=== PATIENT | male | born 1965 | race Two or more races ===

== ENCOUNTER 2018-07-16 16:33 | Inpatient (IN) | payer OTHER ==
[~2018-07-16] VITALS: Ht 195.6 cm; Wt 205.6 kg
[2018-07-16] MEDS ORDERED: CLINDAMYCIN 600MG IV 50 ML IV ONE (17:45)
[2018-07-16 18:19] LABS: Basophils # (auto) 0 uL; Eosinophils # (auto) 0.1 uL; Lymphocytes # (auto) 0.8 uL; Monocytes # (auto) 0.9 uL; Neutrophils # (auto) 5.9 uL
[2018-07-16 18:21] LABS: Basophils % (auto) 0.5 % (0.0-2.0); Hematocrit 39.6 % (41.0-53.0); Hemoglobin 12.7 g/dL (13.5-17.5); Lymphocytes % (auto) 10.1 % (10.0-50.0); Mean Corpuscular Hemoglobin 26.5 pg (28.0-32.0); Mean Corpuscular Hgb Conc. 32.1 g/dL (32.0-36.0); Mean Corpuscular Volume 82.8 fL (80.0-100.0); Monocytes % (auto) 12.2 % (0.0-12.0); Neutrophils % (auto) 76.2 % (37.0-80.0); Platelet Count (auto) 336 10^3/uL (140-450); Red Blood Cells 4.78 10^6/uL (4.5-5.90); White Blood Cell 7.8 10^3/uL (4.4-10.8)
[2018-07-16 18:30] LABS: INR 1.08 (0.9-1.15); Partial Thromboplastin Time 26.4 sec (23.78-33.04); Prothrombin Time 11.5 sec (9.27-12.13)
[2018-07-16 18:32] LABS: Albumin 2.9 g/dL (3.4-5.0); Calcium 8.3 mg/dL (8.5-10.1)
[2018-07-16 18:37] LABS: BUN/Creatinine Ratio 14.5; Bilirubin, Total 2.4 mg/dL (0.2-1.0); Total Protein 7.4 g/dL (6.4-8.2)
[2018-07-16] MEDS ORDERED: SODIUM CHLORIDE 0.9% 500 ML IV ONE (20:45)
[2018-07-16] MEDS: SODIUM CHLORIDE 0.9% 500 ML IV ONE ×2 (21:21→21:22)
[2018-07-16] MEDS ORDERED: DOCUSATE SOD 100 MG CAP PO PRN (22:15)
[2018-07-16] MEDS ORDERED: VANCOMYCIN PER PHARMACY 0 MG IV SCH (22:15)
[2018-07-16] MEDS ORDERED: D5W/SOD CHL 0.45% 1,000 ML IV ONE (22:15)
[2018-07-16] MEDS ORDERED: HYDROcodone-ACET 5/325MG TAB PO PRN (22:15)
[2018-07-17] VITALS (7 sets, daily range): BP systolic 114–158; BP diastolic 66–84
[2018-07-17] MEDS: VANCOMYCIN 1GM/250ML 500 ML IV SCH ×2 (01:06→23:07)
[2018-07-17] MEDS: LEVOFLOXACIN 500MG 100 ML IV SCH (09:00)
[2018-07-17] MEDS: FAMOTIDINE 20 MG TAB PO SCH ×2 (09:01→22:16)
[2018-07-17] MEDS: VANCOMYCIN 1,250 MG in D5W 5% 250 ML IV SCH ×2 (09:01→18:31)
[2018-07-18] MEDS: VANCOMYCIN 1,250 MG in D5W 5% 250 ML IV SCH ×2 (01:08→09:29)
[2018-07-18 05:00] VITALS: BP 113/77
[2018-07-18 09:00] VITALS: BP 121/73
[2018-07-18] MEDS: LEVOFLOXACIN 500MG 100 ML IV SCH (09:29)
[2018-07-18] MEDS: FAMOTIDINE 20 MG TAB PO SCH ×2 (09:29→21:25)
[2018-07-18 09:48] LABS: Basophils # (auto) 0 uL; Eosinophils # (auto) 0.1 uL; Lymphocytes # (auto) 0.7 uL; Monocytes # (auto) 0.7 uL; White Blood Cell 6.5 10^3/uL (4.4-10.8)
[2018-07-18 09:50] LABS: Basophils % (auto) 0.6 % (0.0-2.0); Eosinophils % (auto) 1.1 % (0.0-7.0); Hematocrit 37.7 % (41.0-53.0); Hemoglobin 12.4 g/dL (13.5-17.5); Lymphocytes % (auto) 10.8 % (10.0-50.0); Mean Corpuscular Hemoglobin 26.8 pg (28.0-32.0); Mean Corpuscular Hgb Conc. 32.8 g/dL (32.0-36.0); Mean Corpuscular Volume 81.6 fL (80.0-100.0); Monocytes % (auto) 10.6 % (0.0-12.0); Neutrophils % (auto) 76.9 % (37.0-80.0); Nucleated Red Blood Cells % 0.1 %; Platelet Count (auto) 341 10^3/uL (140-450); Red Blood Cells 4.61 10^6/uL (4.5-5.90); Red Cell Distribution Width 15.8 % (11.8-14.3)
[2018-07-18 10:01] LABS: BUN/Creatinine Ratio 10.1; Calcium 8.3 mg/dL (8.5-10.1); Potassium 3.7 mmol/L (3.5-5.1)
[2018-07-18] MEDS: HYDROcodone-ACET 5/325MG TAB PO PRN (13:10)
[2018-07-18 17:00] VITALS: BP 127/71
[2018-07-18] MEDS ORDERED: VANCOMYCIN 1GM/250ML 250 ML IV SCH (18:00)
[2018-07-18 21:48] VITALS: BP 121/59
[2018-07-19] VITALS (7 sets, daily range): BP systolic 125–142; BP diastolic 59–87
[2018-07-19 06:37] LABS: Basophils # (auto) 0.1 uL; Basophils % (auto) 1.2 % (0.0-2.0); Eosinophils # (auto) 0.2 uL; Eosinophils % (auto) 2.5 % (0.0-7.0); Hematocrit 40.1 % (41.0-53.0); Hemoglobin 12.9 g/dL (13.5-17.5); Lymphocytes # (auto) 0.9 uL; Lymphocytes % (auto) 15.2 % (10.0-50.0); Mean Corpuscular Hemoglobin 27.4 pg (28.0-32.0); Mean Corpuscular Hgb Conc. 32.2 g/dL (32.0-36.0); Mean Corpuscular Volume 85.1 fL (80.0-100.0); Monocytes # (auto) 0.7 uL; Monocytes % (auto) 12.1 % (0.0-12.0); Neutrophils # (auto) 4.1 uL; Platelet Count (auto) 119 10^3/uL (140-450); Red Cell Distribution Width 15.9 % (11.8-14.3); White Blood Cell 5.9 10^3/uL (4.4-10.8)
[2018-07-19 06:43] LABS: Calcium 8.6 mg/dL (8.5-10.1); Potassium 4.1 mmol/L (3.5-5.1)
[2018-07-19] MEDS ORDERED: LEVOFLOXACIN 500MG 100 ML IV SCH (09:00)
[2018-07-19] MEDS: FAMOTIDINE 20 MG TAB PO SCH ×2 (10:56→21:34)
[2018-07-19] MEDS: HYDROcodone-ACET 5/325MG TAB PO PRN (15:53)
[2018-07-20] VITALS (7 sets, daily range): BP systolic 132–149; BP diastolic 80–91
[2018-07-20] MEDS: FAMOTIDINE 20 MG TAB PO SCH ×2 (09:39→21:51)
[2018-07-21 05:00] VITALS: BP 140/80
[2018-07-21 09:00] VITALS: BP 153/92
[2018-07-21] MEDS: FAMOTIDINE 20 MG TAB PO SCH ×2 (11:04→21:27)
[2018-07-21 13:00] VITALS: BP 124/65
[2018-07-21 17:00] VITALS: BP 113/77
[2018-07-21 22:00] VITALS: BP 131/74
[2018-07-22 05:09] VITALS: BP 150/83
[2018-07-22 09:00] VITALS: BP 138/78
[2018-07-22] MEDS: FAMOTIDINE 20 MG TAB PO SCH ×2 (11:20→21:24)
[2018-07-22 13:00] VITALS: BP 133/58
[2018-07-22 17:00] VITALS: BP 146/92
[2018-07-22 19:48] LABS: Basophils # (auto) 0 uL; Basophils % (auto) 0.8 % (0.0-2.0); Eosinophils # (auto) 0.2 uL; Eosinophils % (auto) 2.9 % (0.0-7.0); Hematocrit 38.9 % (41.0-53.0); Hemoglobin 12.7 g/dL (13.5-17.5); Lymphocytes # (auto) 0.9 uL; Lymphocytes % (auto) 15.2 % (10.0-50.0); Mean Corpuscular Hemoglobin 27.3 pg (28.0-32.0); Mean Corpuscular Hgb Conc. 32.7 g/dL (32.0-36.0); Mean Corpuscular Volume 83.5 fL (80.0-100.0); Monocytes # (auto) 0.5 uL; Monocytes % (auto) 7.8 % (0.0-12.0); Neutrophils # (auto) 4.3 uL; Neutrophils % (auto) 73.3 % (37.0-80.0); Nucleated Red Blood Cells % 0.1 %; Platelet Count (auto) 236 10^3/uL (140-450); Red Blood Cells 4.65 10^6/uL (4.5-5.90); Red Cell Distribution Width 16.1 % (11.8-14.3); White Blood Cell 5.8 10^3/uL (4.4-10.8)
[2018-07-22 19:54] LABS: INR 1.11 (0.9-1.15); Partial Thromboplastin Time 31.3 sec (23.78-33.04); Prothrombin Time 11.8 sec (9.27-12.13)
[2018-07-22 19:57] LABS: Albumin 2.6 g/dL (3.4-5.0); BUN/Creatinine Ratio 11.5; Calcium 8.2 mg/dL (8.5-10.1); Potassium 4.3 mmol/L (3.5-5.1)
[2018-07-22 20:00] LABS: Bilirubin, Total 1.5 mg/dL (0.2-1.0); Total Protein 7.2 g/dL (6.4-8.2)
[2018-07-22 22:00] VITALS: BP 119/83
[2018-07-22 23:21] LABS: Urine Bacteria FEW /hpf (None Seen); Urine Blood 1+ /uL (Negative); Urine Specific Gravity 1.005 (1.001-1.035); Urine WBC 2 /hpf (0 - 3)
[2018-07-23 05:00] VITALS: BP 129/80
[2018-07-23 09:00] VITALS: BP 124/82
[2018-07-23] MEDS: FAMOTIDINE 20 MG TAB PO SCH ×2 (10:00→22:00)
[2018-07-23] MEDS ORDERED: MIDAZOLAM HCL 1MG/1ML-2 ML VIAL ONE (12:29)
[2018-07-23] MEDS ORDERED: LIDOCAINE 1% (LOCAL ANESTH.) PF 5ml SDV ONE (12:30)
[2018-07-23] MEDS ORDERED: PROPOFOL 10 MG/ML 20 ML IV ONE (12:30)
[2018-07-23 12:31] VITALS: BP 137/86
[2018-07-23] MEDS ORDERED: LIDOCAINE 1% HCL (LOCAL ANESTH.) INJ 20ML MDV ONE (13:24)
[2018-07-23] MEDS ORDERED: BUPIVACAINE 0.5% P/F INJ 10 ML VIAL ONE (13:24)
[2018-07-23] MEDS: ONDANSETRON HCL 4 MG/2 ML VIAL IV ONE ×2 (14:15→14:25)
[2018-07-23] MEDS ORDERED: KETOROLAC TROMETH 30 MG/ML 1ML VIAL IV ONE (14:15)
[2018-07-23] MEDS ORDERED: HYDROmorphone HCL 2 MG/ML VL IV PRN (14:15)
[2018-07-23] MEDS ORDERED: hydrALAZINE HCL 20 MG/ML VL IV PRN (14:15)
[2018-07-23] MEDS ORDERED: ePHEDrine SULFATE 50 MG/ML AMP IV PRN (14:15)
[2018-07-23] MEDS ORDERED: LABETALOL HCL 5 MG/ML 4ML SYRINGE IV PRN (14:15)
[2018-07-23] MEDS ORDERED: MORPHINE SULFATE 4 MG/ML SYR/VIAL IV PRN (14:15)
[2018-07-23] MEDS: HYDROcodone-ACET 5/325MG TAB PO PRN (16:13)
[2018-07-23 17:26] VITALS: BP 143/85
[2018-07-23 22:00] VITALS: BP 141/67
[2018-07-24 05:00] VITALS: BP 145/87
[2018-07-24] MEDS: ENOXAPARIN SOD 60 MG/0.6 ML SYRINGE SC SCH (08:58)
[2018-07-24] MEDS: FAMOTIDINE 20 MG TAB PO SCH ×2 (08:59→22:15)
[2018-07-24 09:00] VITALS: BP 140/84
[2018-07-24 12:25] VITALS: BP 135/73
[2018-07-24 17:30] VITALS: BP 128/74
[2018-07-24 22:00] VITALS: BP 107/74
[2018-07-25 04:30] VITALS: BP 128/90
[2018-07-25 09:18] VITALS: BP 128/77
[2018-07-25] MEDS: FAMOTIDINE 20 MG TAB PO SCH ×2 (10:41→21:59)
[2018-07-25] MEDS: ENOXAPARIN SOD 60 MG/0.6 ML SYRINGE SC SCH (10:41)
[2018-07-25 13:30] VITALS: BP 127/80
[2018-07-25] MEDS ORDERED: VANCOMYCIN PER PHARMACY 0 MG IV SCH (16:00)
[2018-07-25 17:30] VITALS: BP 125/75
[2018-07-25] MEDS: VANCOMYCIN 1GM/250ML 250 ML IV SCH (17:59)
[2018-07-25] MEDS: SULFAMETHOX W/TRIMETH(800/160MG) DS TAB PO SCH (21:59)
[2018-07-25 22:00] VITALS: BP 124/74
[2018-07-26] MEDS: VANCOMYCIN 1GM/250ML 250 ML IV SCH ×4 (06:00→22:44)
[2018-07-26 06:26] LABS: Calcium 8.4 mg/dL (8.5-10.1); Potassium 4.2 mmol/L (3.5-5.1)
[2018-07-26 06:32] LABS: BUN/Creatinine Ratio 19.2; Bilirubin, Total 1.3 mg/dL (0.2-1.0); Total Protein 7.3 g/dL (6.4-8.2)
[2018-07-26 08:39] VITALS: BP 140/78
[2018-07-26] MEDS: SULFAMETHOX W/TRIMETH(800/160MG) DS TAB PO SCH ×2 (10:10→22:42)
[2018-07-26] MEDS: FAMOTIDINE 20 MG TAB PO SCH ×2 (10:10→22:43)
[2018-07-26] MEDS: ENOXAPARIN SOD 60 MG/0.6 ML SYRINGE SC SCH (10:10)
[2018-07-26 13:00] VITALS: BP 129/86
[2018-07-26 17:00] VITALS: BP 129/67
[2018-07-26 22:00] VITALS: BP 136/77
[2018-07-27 05:00] VITALS: BP 115/78
[2018-07-27] MEDS: VANCOMYCIN 1GM/250ML 250 ML IV SCH ×3 (05:40→22:00)
[2018-07-27] MEDS: SULFAMETHOX W/TRIMETH(800/160MG) DS TAB PO SCH ×2 (11:27→22:00)
[2018-07-27] MEDS: FAMOTIDINE 20 MG TAB PO SCH ×2 (11:27→22:00)
[2018-07-27] MEDS: ENOXAPARIN SOD 60 MG/0.6 ML SYRINGE SC SCH (11:27)
[2018-07-27 11:49] LABS: Hepatitis A Ab IgM Negative; Hepatitis B Core IgM Negative
[2018-07-27 11:50] LABS: Hepatitis B Surface Antigen Negative (Negative); Hepatitis C Antibody Negative (Negative)
[2018-07-27] MEDS: HYDROcodone-ACET 5/325MG TAB PO PRN (14:08)
[2018-07-27 22:00] VITALS: BP 134/64
[2018-07-28 05:19] VITALS: BP 129/83
[2018-07-28] MEDS: VANCOMYCIN 1GM/250ML 250 ML IV SCH ×3 (05:56→22:27)
[2018-07-28 08:57] VITALS: BP 119/79
[2018-07-28] MEDS: SULFAMETHOX W/TRIMETH(800/160MG) DS TAB PO SCH ×2 (09:47→22:27)
[2018-07-28] MEDS: ENOXAPARIN SOD 60 MG/0.6 ML SYRINGE SC SCH (09:47)
[2018-07-28] MEDS: FAMOTIDINE 20 MG TAB PO SCH ×2 (09:47→22:27)
[2018-07-28] MEDS ORDERED: HYDROcodone-ACET 5/325MG TAB PO PRN (11:15)
[2018-07-28 13:00] VITALS: BP 138/76
[2018-07-28 17:00] VITALS: BP 131/77
[2018-07-28 22:00] VITALS: BP 115/61
[2018-07-29 05:00] VITALS: BP 134/80
[2018-07-29 05:49] LABS: Basophils # (auto) 0.1 uL; Basophils % (auto) 1.4 % (0.0-2.0); Eosinophils # (auto) 0.2 uL; Eosinophils % (auto) 4.1 % (0.0-7.0); Hematocrit 41.9 % (41.0-53.0); Hemoglobin 13.9 g/dL (13.5-17.5); Lymphocytes % (auto) 18.7 % (10.0-50.0); Mean Corpuscular Hemoglobin 27.9 pg (28.0-32.0); Mean Corpuscular Hgb Conc. 33.2 g/dL (32.0-36.0); Mean Corpuscular Volume 84.1 fL (80.0-100.0); Monocytes # (auto) 0.6 uL; Monocytes % (auto) 10.6 % (0.0-12.0); Neutrophils # (auto) 3.6 uL; Neutrophils % (auto) 65.2 % (37.0-80.0); Nucleated Red Blood Cells % 0.2 %; Platelet Count (auto) 262 10^3/uL (140-450); Red Blood Cells 4.98 10^6/uL (4.5-5.90); Red Cell Distribution Width 18.1 % (11.8-14.3); White Blood Cell 5.6 10^3/uL (4.4-10.8)
[2018-07-29 05:59] LABS: Calcium 8.5 mg/dL (8.5-10.1); Potassium 4.3 mmol/L (3.5-5.1)
[2018-07-29 06:02] LABS: BUN/Creatinine Ratio 12.7
[2018-07-29] MEDS: VANCOMYCIN 1GM/250ML 250 ML IV SCH ×2 (06:07→14:42)
[2018-07-29] MEDS: FAMOTIDINE 20 MG TAB PO SCH ×2 (09:04→21:54)
[2018-07-29] MEDS: SULFAMETHOX W/TRIMETH(800/160MG) DS TAB PO SCH ×2 (09:04→21:54)
[2018-07-29] MEDS: ENOXAPARIN SOD 60 MG/0.6 ML SYRINGE SC SCH (09:05)
[2018-07-29 09:19] VITALS: BP 135/78
[2018-07-29 17:30] VITALS: BP 122/76
[2018-07-29 20:00] VITALS: BP 131/69
[2018-07-29 21:30] VITALS: BP 131/69
[2018-07-29] MEDS: ASCORBIC ACID 500 MG TAB PO SCH (21:54)
[2018-07-30] MEDS: VANCOMYCIN 1,250 MG in D5W 5% 250 ML IV SCH ×2 (03:00→16:09)
[2018-07-30 04:53] VITALS: BP 130/69
[2018-07-30 08:00] VITALS: BP 125/82
[2018-07-30 09:14] VITALS: BP 125/82
[2018-07-30] MEDS: MULTIPLE VITAMIN TAB PO SCH (09:23)
[2018-07-30] MEDS: SULFAMETHOX W/TRIMETH(800/160MG) DS TAB PO SCH ×2 (09:23→22:14)
[2018-07-30] MEDS: ASCORBIC ACID 500 MG TAB PO SCH ×2 (09:23→22:15)
[2018-07-30] MEDS: FAMOTIDINE 20 MG TAB PO SCH ×2 (09:24→22:15)
[2018-07-30] MEDS: ENOXAPARIN SOD 60 MG/0.6 ML SYRINGE SC SCH (09:24)
[2018-07-30 12:50] VITALS: BP 123/68
[2018-07-30 16:53] VITALS: BP 124/68
[2018-07-30 22:00] VITALS: BP 118/65
[2018-07-31] MEDS: VANCOMYCIN 1,250 MG in D5W 5% 250 ML IV SCH ×2 (03:04→11:50)
[2018-07-31 04:30] VITALS: BP 138/90
[2018-07-31 08:39] VITALS: BP 140/66
[2018-07-31] MEDS: FAMOTIDINE 20 MG TAB PO SCH ×2 (11:49→21:40)
[2018-07-31] MEDS: MULTIPLE VITAMIN TAB PO SCH (11:49)
[2018-07-31] MEDS: ASCORBIC ACID 500 MG TAB PO SCH ×2 (11:49→21:40)
[2018-07-31] MEDS ORDERED: CIPROFLOXACIN HCL 500 MG TAB PO ONE (12:00)
[2018-07-31 17:04] VITALS: BP 128/64
[2018-07-31] MEDS: CIPROFLOXACIN HCL 500 MG TAB PO SCH (21:40)
[2018-07-31 22:00] VITALS: BP 130/64
[2018-08-01 05:05] VITALS: BP 127/69
[2018-08-01] MEDS: ENOXAPARIN SOD 60 MG/0.6 ML SYRINGE SC SCH (08:52)
[2018-08-01] MEDS: CIPROFLOXACIN HCL 500 MG TAB PO SCH ×2 (08:52→21:52)
[2018-08-01 09:00] VITALS: BP 129/85
[2018-08-01] MEDS: FAMOTIDINE 20 MG TAB PO SCH ×2 (10:00→21:52)
[2018-08-01] MEDS: ASCORBIC ACID 500 MG TAB PO SCH ×2 (10:00→21:52)
[2018-08-01] MEDS: MULTIPLE VITAMIN TAB PO SCH (10:00)
[2018-08-01 13:00] VITALS: BP 105/53
[2018-08-01 17:00] VITALS: BP 138/72
[2018-08-01 22:00] VITALS: BP 107/60
[2018-08-02 05:00] VITALS: BP 101/61
[2018-08-02 08:37] VITALS: BP 110/68
[2018-08-02] MEDS ORDERED: CIP500T PO (09:11)
[2018-08-02] MEDS: ASCORBIC ACID 500 MG TAB PO SCH (09:14)
[2018-08-02] MEDS: FAMOTIDINE 20 MG TAB PO SCH (09:14)
[2018-08-02] MEDS: MULTIPLE VITAMIN TAB PO SCH (09:14)
[2018-08-02] MEDS: CIPROFLOXACIN HCL 500 MG TAB PO SCH (09:14)
[2018-08-02] MEDS: ENOXAPARIN SOD 60 MG/0.6 ML SYRINGE SC SCH (09:15)
[2018-08-02 12:59] VITALS: BP 122/72
== END 2018-08-02 12:00 | DRG 571 ==
LOC: ER 16:33 → EDBD 16:33 → EEVIPCON 16:33 → OVERFLOW 22:22 → EAST 23:36
PROVIDERS: ADMIT Specialist; ATTEND Internal Medicine
PROC: 0JBR0ZZ Excision of Left Foot Subcutaneous Tissue and Fascia, Open Approach (ICD-10-PCS; principal; 2018-07-23 13:01)
DX: L03.116 Cellulitis of left lower limb (principal); E87.1 Hypo-osmolality and hyponatremia; Z68.43 Body mass index [BMI] 50.0-59.9, adult; L97.429 Non-pressure chronic ulcer of left heel and midfoot with unspecified severity; L97.919 Non-pressure chronic ulcer of unspecified part of right lower leg with unspecified severity; E44.0 Moderate protein-calorie malnutrition; L89.629 Pressure ulcer of left heel, unspecified stage; L03.115 Cellulitis of right lower limb; L89.899 Pressure ulcer of other site, unspecified stage; L89.159 Pressure ulcer of sacral region, unspecified stage; E66.01 Morbid (severe) obesity due to excess calories; I73.9 Peripheral vascular disease, unspecified; M54.5 Low back pain; K21.9 Gastro-esophageal reflux disease without esophagitis; M21.372 Foot drop, left foot; I51.7 Cardiomegaly; Z88.1 Allergy status to other antibiotic agents
CPT/HCPCS: 36415; 71045; 80048; 80053; 80074; 80202; 81001; 82962; 83036; 85025; 85610; 85730; 87040; 87077; 87186; 87205; 93005; 93926; 93970; 97163; A6257; G0378; J1956; J2001; J2250; J2405; J2704; J3490; J7060

== ENCOUNTER 2018-08-04 18:07 | Emergency (ER) | payer OTHER ==
[~2018-08-04 18:07] MED LIST: CIP500T PO
[2018-08-04 19:40] LABS: Potassium 4.7 mmol/L (3.5-5.1)
[2018-08-04 19:43] LABS: Albumin 3.5 g/dL (3.4-5.0); Calcium 8.8 mg/dL (8.5-10.1)
[2018-08-04 19:44] LABS: Basophils # (auto) 0.1 uL; Basophils % (auto) 1.2 % (0.0-2.0); Eosinophils # (auto) 0.3 uL; Eosinophils % (auto) 3.5 % (0.0-7.0); Hematocrit 40.4 % (41.0-53.0); Hemoglobin 13.5 g/dL (13.5-17.5); Lymphocytes # (auto) 1.2 uL; Lymphocytes % (auto) 12.9 % (10.0-50.0); Mean Corpuscular Hemoglobin 28.4 pg (28.0-32.0); Mean Corpuscular Hgb Conc. 33.3 g/dL (32.0-36.0); Mean Corpuscular Volume 85.1 fL (80.0-100.0); Monocytes # (auto) 0.8 uL; Monocytes % (auto) 8.4 % (0.0-12.0); Neutrophils # (auto) 6.8 uL; Nucleated Red Blood Cells % 0.1 %; Platelet Count (auto) 355 10^3/uL (140-450); Red Blood Cells 4.75 10^6/uL (4.5-5.90); Red Cell Distribution Width 19.7 % (11.8-14.3); White Blood Cell 9.2 10^3/uL (4.4-10.8)
[2018-08-04 19:46] LABS: BUN/Creatinine Ratio 24.5
[2018-08-04 19:49] LABS: Bilirubin, Total 1.9 mg/dL (0.2-1.0); Total Protein 8.5 g/dL (6.4-8.2)
[2018-08-04] MEDS ORDERED: NEOMYCIN-BACITRACIN-POLYM 15GM TOP OINT TOP ONE (21:45)
[2018-08-04 22:34] VITALS: BP 110/52
== END 2018-08-05 00:03 | disposition home or self-care (01) ==
LOC: EEVIPCON 18:07 → EDBD 18:07 → ER 18:07
DX: L97.529 Non-pressure chronic ulcer of other part of left foot with unspecified severity (principal); L97.519 Non-pressure chronic ulcer of other part of right foot with unspecified severity; L03.116 Cellulitis of left lower limb; L03.115 Cellulitis of right lower limb
CPT/HCPCS: 36415; 80053; 82010; 85025